=== PATIENT | female | born 1985 | race Caucasian/White ===

== ENCOUNTER 2017-04-24 22:38 | Observation (INO) | payer MEDICAID ==
[~2017-04-24] VITALS: Ht 261.6 cm; Wt 82.6 kg
[2017-04-24] MEDS ORDERED: IRON-1 PO (23:22)
[2017-04-24] MEDS ORDERED: PREN-88 PO (23:22)
== END 2017-04-25 00:05 | disposition home or self-care (01) ==
LOC: L&D 22:38
PROVIDERS: ADMIT Obstetrics & Gynecology; ATTEND Obstetrics & Gynecology
DX: O26.893 Other specified pregnancy related conditions, third trimester (principal); R10.30 Lower abdominal pain, unspecified; Z3A.36 36 weeks gestation of pregnancy
CPT/HCPCS: 99281; G0378

== ENCOUNTER 2018-04-15 20:37 | Emergency (ER) | payer MEDICAID ==
[~2018-04-15] VITALS: Ht 154.9 cm; Wt 85.9 kg
[~2018-04-15 20:37] MED LIST: IRON-1 PO; PREN-88 PO
[2018-04-15 21:45] VITALS: BP 120/49
== END 2018-04-15 23:45 | disposition left against medical advice (07) ==
LOC: ER 20:37
DX: Z53.21 Procedure and treatment not carried out due to patient leaving prior to being seen by health care provider (principal)